=== PATIENT | female | born 1960 | race Caucasian/White ===

== ENCOUNTER 2018-05-12 12:32 | Outpatient (REF) | payer MEDICAID, SELFPAY ==
[2018-05-12 19:27] LABS: HCT 45.6 % (36.0-46.0); HGB 15.2 g/dL (12.0-15.5); Mean Corp. HGB Concentration 33.3 g/dL (32.0-36.0); Mean Corpuscular Volume 98.9 fL (80-95); Mean Platelet Volume 10.7 fL (8.0-11.0); Platelet Count 213 x1000/uL (130-400); RBC 4.61 m/cumm (4.00-5.20); RBC Distribution Width 13.1 % (11.7-14.6); White Blood Cell Count 7.35 k/cumm (4.4-10.8)
[2018-05-12 19:53] LABS: ALT 27 U/L (12-78); AST 25 U/L (15-37); Albumin 4.1 g/dL (3.4-5.0); Alkaline Phosphatase 64 U/L (46-116); BUN 11 mg/dL (7-18); Bilirubin, Total 0.2 mg/dL (0.2-1.0); CREATININE 0.73 mg/dL (0.55-1.02); Calcium 8.5 mg/dL (8.5-10.1); Chloride 106 mmol/L (98-107); Glucose 87 mg/dL (70-100); Lipase 162 U/L (73-393); Potassium 4.2 mmol/L (3.5-5.1); Sodium 142 mmol/L (136-145); TSH 1.26 uIU/mL (0.358-3.74); Total Protein 7.1 g/dL (6.4-8.2)
== END 2018-05-12 12:52 ==
LOC: NCHCN 12:32
PROVIDERS: PCP Internal Medicine; Visit Provider Internal Medicine
DX: L28.0 Lichen simplex chronicus (principal); R63.4 Abnormal weight loss; D05.11 Intraductal carcinoma in situ of right breast; M54.9 Dorsalgia, unspecified; F43.10 Post-traumatic stress disorder, unspecified
CPT/HCPCS: 80053; 83690; 85027; 84443

== ENCOUNTER 2018-06-07 00:45 | Outpatient (CLI) | payer MEDICAID, SELFPAY ==
--- NOTE | 2018-06-07 14:00 | DI.US_ITS ---
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 dated September,. The patient has bilateral breast implants, which appear intact bilaterally. There is very little breast tissue. No cysts or masses are identified. No skin thickening is seen. IMPRESSION: Category 1, negative bilateral breast ultrasound. Yearly screening mammography is recommended. SA ASSESSMENT OF FINDINGS: Negative. Category 1. Patient will receive a letter notifying them of these results.
== END 2018-06-07 01:05 ==
PROVIDERS: PCP Internal Medicine; Visit Provider Internal Medicine
DX: D05.11 Intraductal carcinoma in situ of right breast (principal); Z98.82 Breast implant status
CPT/HCPCS: 76642

== ENCOUNTER 2019-06-08 00:56 | Outpatient (CLI) | payer MEDICAID, SELFPAY ==
--- NOTE | 2019-06-08 14:34 | DI.US_ITS ---
EXAM: US BREAST RT COMPLETE CLINICAL HISTORY: DUCTAL CARCINOMA IN SITU, ABNORMAL CELLS TECHNIQUE: Ultrasound performed using standard protocol. COMPARISON: US breast LT complete from 06/07/2018 FINDINGS: Right breast ultrasound and left breast ultrasound are interpreted in conjunction. These examination s were obtained as the patient refuses mammography. Ultrasound evaluation of both breasts shows no mass or cyst. IMPRESSION: Negative bilateral breast ultrasound. Please note that ultrasound is much less sensitive than mammog jaida in detecting early breast carcinoma and mammography is recommended in this patient.
== END 2019-06-08 01:16 ==
PROVIDERS: PCP Internal Medicine; Visit Provider Internal Medicine
DX: D05.10 Intraductal carcinoma in situ of unspecified breast (principal)
CPT/HCPCS: 76642

== ENCOUNTER 2019-07-27 16:06 | Outpatient (REF) | payer MEDICAID, SELFPAY ==
[2019-07-27 19:06] LABS: PROTEIN 181.4 mg/dL
[2019-07-27 19:10] LABS: COMMENT (LAB VIEW ONLY) 247.44 mg/dL; Prot/Crea Ur Ratio 0.73
[2019-07-27 19:16] LABS: HCT 43.5 % (36.0-46.0); HGB 15.1 g/dL (12.0-15.5); Mean Corp. HGB Concentration 34.7 g/dL (32.0-36.0); Mean Corpuscular Hemoglobin 33.8 pg (27.0-33.0); Mean Corpuscular Volume 97.3 fL (80-95); Mean Platelet Volume 10.1 fL (8.0-11.0); Platelet Count 219 x1000/uL (130-400); RBC 4.47 m/cumm (4.00-5.20); White Blood Cell Count 6.91 k/cumm (4.4-10.8)
[2019-07-27 19:27] LABS: ALT 36 U/L (14-59); AST 29 U/L (15-37); Albumin 4.4 g/dL (3.4-5.0); Alkaline Phosphatase 52 U/L (46-116); Anion Gap 11.2 mmol/L (3-11); BUN 15 mg/dL (7-18); Bilirubin, Total 0.4 mg/dL (0.2-1.0); CO2 28.8 mmol/L (21.0-32.0); CREATININE 0.63 mg/dL (0.55-1.02); Chloride 104 mmol/L (98-107); Glucose 83 mg/dL (74-106); Potassium 4.4 mmol/L (3.5-5.1); Sodium 144 mmol/L (136-145); TSH 0.92 uIU/mL (0.36-3.74); Total Protein 7.4 g/dL (6.4-8.2)
== END 2019-07-27 16:26 ==
LOC: NCHCN 16:06
PROVIDERS: PCP Internal Medicine; Visit Provider Internal Medicine
DX: R10.32 Left lower quadrant pain (principal); F17.210 Nicotine dependence, cigarettes, uncomplicated; R63.4 Abnormal weight loss; M79.7 Fibromyalgia
CPT/HCPCS: 80053; 85027; 82565; 84156; 84443

== ENCOUNTER 2020-08-28 16:52 | Outpatient (REF) | payer MEDICAID, SELFPAY ==
[2020-08-30 15:34] LABS: COVID-19 RT-PCR Result NEGATIVE (Negative)
== END 2020-08-28 17:12 ==
LOC: NCHCN 16:52
PROVIDERS: PCP Internal Medicine; Visit Provider Internal Medicine
DX: Z20.822 Contact with and (suspected) exposure to COVID-19 (principal)
CPT/HCPCS: U0003

== ENCOUNTER 2020-11-14 14:59 | Outpatient (REF) | payer MEDICAID, SELFPAY ==
[2020-11-14 18:43] LABS: HCT 42.3 % (36.0-46.0); HGB 14.7 g/dL (11.2-15.7); MCHC 34.8 % (32.0-36.0); MCV 97.9 fL (80-95); MPV 9.8 fL (8.0-11.0); Platelet Count 201 10^3/uL (130-400); RBC 4.32 10^6/uL (3.93-5.22); RDW 12.6 % (11.7-14.6); RDW-SD 45.3 fL; WBC 8.12 10^3/uL (4.4-10.8)
[2020-11-14 19:00] LABS: ALT 26 U/L (14-59); AST 21 U/L (15-37); Alkaline Phosphatase 51 U/L (46-116); Anion Gap 7.8 mmol/L (3-11); BUN 15 mg/dL (7-18); Bilirubin, Total 0.6 mg/dL (0.2-1.0); CO2 28.2 mmol/L (21.0-32.0); CREATININE 0.8 mg/dL (0.55-1.02); Chloride 103 mmol/L (98-107); Glucose 100 mg/dL (74-106); Potassium 4.4 mmol/L (3.5-5.1); Sodium 139 mmol/L (136-145); Total Protein 6.9 g/dL (6.4-8.2)
== END 2020-11-14 15:00 | disposition home or self-care (01) ==
LOC: NCHCN 14:59
PROVIDERS: PCP Internal Medicine; Visit Provider Internal Medicine
DX: R63.4 Abnormal weight loss (principal); G43.909 Migraine, unspecified, not intractable, without status migrainosus; F43.10 Post-traumatic stress disorder, unspecified
CPT/HCPCS: 80053; 85027

== ENCOUNTER 2021-04-22 23:35 | Emergency (ER) | payer MEDICAID, SELFPAY ==
[2021-04-22 23:40] VITALS: BP 124/76; PULSE 67; RESP 18; TEMP 36.7; O2SAT 100
--- NOTE | 2021-04-22 23:45 | DI.CT_ITS ---
Exam(s) CT ABDOMEN PELVIS W EXAM: CT ABDOMEN PELVIS W CLINICAL HISTORY: left flank plain, vomiting. TECHNIQUE: Imaging Protocol: Axial computed tomography images with coronal and sagittal reformatted images were created and reviewed CONTRAST MATERIAL: Intravenous: Omnipaque 100cc Oral: None COMPARISON: CT CHEST FOR PULMONARY EMBOLUS from 05/20/2017 FINDINGS: VISUALIZED LUNG BASES: No nodules nor pleural effusions evident. ABDOMEN: There is no ascites. LIVER: There are no focal hepatic lesions evident . GALLBLADDER/BILIARY: No obvious gallbladder pathology. CBD is not dilated. PANCREAS: No evidence of pancreatic mass nor dilatation of the pancreatic duct. SPLEEN: Spleen is not enlarged. No obvious intrasplenic lesions. Splenic and portal veins are paten t. However there do appear to be some collateral vessels in the region of the left adrenal gland, po ssibly significant. ADRENALS: There are no significant adrenal masses. KIDNEYS:Parapelvic cysts in left kidney are noted. No solid renal masses. No calculi nor hydronephr osis.. ABDOMINAL AORTA: Abdominal aorta is not enlarged. LYMPH NODES:There is no retroperitineal nor paraaortic adenopathy. ABDOMINAL WALL: No evidence of significant anterior abdominal wall hernia. GI: There is no evidence of bowel obstruction, free air, nor abscess. PELVIS: GI: No evidence of appendicitis.No evidence of sigmoid diverticulitis. LYMPH NODES: There is no intrapelvic nor inguinal adenopathy. REPRODUCTIVE: Uterus is surgically absent. There are no abnormal adnexal masses. URINARY BLADDER: Not distended. No obvious abnormality. OSSEOUS: No significant osseous lesions. IMPRESSION: 1. No acute findings. 2. However, there are some collateral vessels near the left adrenal gland. Possibly element of yu l hypertension. Spleen size is upper normal. The liver does not appear cirrhotic. 3. There is no ascites. This study 1st read by [facility] RADIATION DOSE DELIVERED: 498.25mGy.cm Total DLP DATA REPOSITORY: All CT scans at this facility are submitted to the National Radiology Data Registry (NRDR) Dose Index Registry (DIR) with the [employer] (ACR). RADIATION OPTIMIZATION: All CT scans at this facility use at least one of these dose optimization te chniques: automated exposure control; mA and/or kV adjustment per patient size (includes targeted exa ms where dose is matched to clinical indication); or iterative reconstruction.
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
[2021-04-23] VITALS (21 sets, daily range): BP systolic 90–122; BP diastolic 49–79; PULSE 72–88; O2SAT 90–99
[2021-04-23 00:03] LABS: Abs Immature Grans 0.03 10^3/uL (0.0-0.06); Absolute Basophil Count 0.07 10^3/uL (0.0-0.2); Absolute Eosinophil Count 0.47 10^3/uL (0.0-0.7); Absolute Monocyte Count 0.94 10^3/uL (0.1-0.8); Absolute Neutrophil Count 6.28 10^3/uL (1.2-6.7); Basophils % 0.7; Eosinophils % 4.6; HCT 42.5 % (36.0-46.0); HGB 14.8 g/dL (11.2-15.7); Immature Grans % 0.3; Lactate 0.7 mmol/L (0.6-1.4); Lymphocytes % 23.6; MCH 34.1 pg (27.0-33.0); MCHC 34.8 % (32.0-36.0); MCV 97.9 fL (80-95); MPV 9.4 fL (8.0-11.0); Monocytes % 9.2; Neutrophils % 61.6; Nucleated RBC 0 %; Platelet Count 185 10^3/uL (130-400); RBC 4.34 10^6/uL (3.93-5.22); RDW 12.5 % (11.7-14.6); WBC 10.19 10^3/uL (4.4-10.8)
[2021-04-23 00:06] LABS: Bilirubin Negative (Negative); Blood Small (Negative); Clarity Clear (Clear); Glucose Negative (Negative); Ketones Trace mg/dL (Negative); Leukocyte Esterase Negative (Negative); Nitrite Negative (Negative); Specific Gravity 1.025 (1.005-1.025); Urobilinogen 0.2 EU/dL (Up TO 0.2)
[2021-04-23 00:12] LABS: Bacteria Few HPF (Negative); C & S Indicated? No; Casts Negative LPF (Negative); Crystals Negative HPF (Negative); Epithelial Cells Rare HPF (Negative); Mucus Negative (Negative); WBC Negative HPF (0-5)
[2021-04-23 00:18] LABS: ALT 28 U/L (14-59); AST 23 U/L (15-37); Albumin 4.3 g/dL (3.4-5.0); Alkaline Phosphatase 51 U/L (46-116); Anion Gap 8.6 mmol/L (3-11); BUN 21 mg/dL (7-18); Bilirubin, Total 0.4 mg/dL (0.2-1.0); CO2 28.4 mmol/L (21.0-32.0); CREATININE 0.9 mg/dL (0.55-1.02); Chloride 103 mmol/L (98-107); Glucose 102 mg/dL (74-106); Lipase 142 U/L (73-393); Potassium 3.9 mmol/L (3.5-5.1); Sodium 140 mmol/L (136-145); Total Protein 7.1 g/dL (6.4-8.2)
[2021-04-23] MEDS: Lactated Ringers 1,000 ML 1000 ML IV (00:20)
[2021-04-23] MEDS: Omnipaque 350 MG/ML 100 ML BTL IJ (00:25)
[2021-04-23] MEDS: Ondansetron 4 MG/2 ML VIAL IVP (00:25)
[2021-04-23] MEDS: Normal Saline Flush 10 ML SYR IVP (00:26)
[2021-04-23] MEDS: MORPHine 4 MG/ML SYR IVP (00:29)
--- NOTE | 2021-04-23 01:41 | DI.VRAD_ITS ---
PROCEDURE INFORMATION: Exam: CT Abdomen And Pelvis With Contrast Exam date and time: 04/22/2021 11:50 PM Age: 61 years old Clinical indication: Nausea and vomiting; Other: L flank pain; Prior surgery; Surgery date: 6+ months; Surgery type: Hysterectomy, hernia repair TECHNIQUE: Imaging protocol: Computed tomography of the abdomen and pelvis with contrast. Radiation optimization: All CT scans at this facility use at least one of these dose optimization techniques: automated exposure control; mA and/or kV adjustment per patient size (includes targeted exams where dose is matched to clinical indication); or iterative reconstruction. Contrast material: OMNIPAQUE 350; Contrast volume: 64 ml; Contrast route: INTRAVENOUS (IV); COMPARISON: CT CHEST FOR PULMONARY EMBOLUS 05/20/2017 10:28 PM FINDINGS: Limitations: Paucity of intra-abdominal fat. Lungs: Tiny pulmonary nodules at the lung bases with the largest measuring approximately 2 mm, nonspecific. Liver: Normal appearing liver. Gallbladder and bile ducts: Normal appearing gallbladder. No calcified gallstones. No biliary dilatation. Pancreas: Normal appearing pancreas. Spleen: Normal appearing spleen. Adrenal glands: Adrenal glands partially obscured but grossly unremarkable, as seen. Kidneys and ureters: Unusual asymmetrically prominent renal sinus fat on the left, uncertain etiology and clinical significance. Small indeterminate hypoattenuating left renal lesion, incompletely characterized but statistically most likely a small renal cyst. Normal-appearing right kidney. No hydronephrosis. Ureters obscured. No suspicious calcifications along the expected ureteral courses. Stomach and bowel: No oral contrast. Stomach partially distended with ingested material. No small bowel dilatation to suggest obstruction. Normal-appearing colon. No evidence of diverticulitis or colitis. Appendix: Appendix not identified, obscured if present. Correlation with surgical history recommended. If there is clinical concern for acute appendicitis and the patient still has an appendix, additional evaluation would be recommended. Intraperitoneal space: No gross ascites or free air. Vasculature: Normal caliber abdominal aorta. Varices in the gastrohepatic ligament. Splenic varices and periadrenal varices with an appearance suspicious for portal venous shunting to the left renal vein. Lymph nodes: No pathologically enlarged mesenteric, retroperitoneal, or pelvic sidewall lymph nodes. Urinary bladder: Urinary bladder collapsed and not well evaluated but grossly unremarkable, as seen. Reproductive: Prior hysterectomy. Suggestion of a left ovary with an adjacent adnexal clip on image 60 of series 5. Right ovary suggested along the right pelvic sidewall on image 43 of series 7 with an adjacent adnexal clip on image 40 of series 7. Bones/joints: No acute fracture seen among the bones of the abdomen or pelvis. Prominent discogenic degeneration at L2-L3. Soft tissues: No significant ventral or inguinal hernia. IMPRESSION: 1. Unusual asymmetric prominence of the renal sinus fat on the left, uncertain etiology and clinical significance but also apparently present on the comparison CTA chest or 2017 although the kidneys are only partially visualized on that exam. 2. No hydronephrosis. Ureters obscured. No suspicious calcifications along the expected ureteral courses. 3. No acute bowel pathology demonstrated. 4. Varices in the gastrohepatic ligament. Splenic varices and periadrenal varices with an appearance suspicious for portal venous shunting to the left renal vein. Elevated portal venous pressure is suggested. Dictated and Authenticated by: Barney Madsen MD. Ordering:MARY Dixon MD
[2021-04-23] MEDS: Ketorolac 15 MG/ML VIAL IVP (02:03)
== END 2021-04-23 02:25 | disposition home or self-care (01) ==
LOC: ER 04-23 02:22
PROVIDERS: Emergency Provider Student in an Organized Health Care Education/Training Program; PCP Internal Medicine
DX: R10.9 Unspecified abdominal pain (principal)
CPT/HCPCS: 36415; 80053; 83690; 96361; 96374; 96375; 99285; 74177; 81003; 81015; 83605; 85025; 99284; J1885; J2270; J2405; J3490

== ENCOUNTER 2022-09-02 01:45 | Outpatient (CLI) | payer MEDICAID, SELFPAY ==
--- NOTE | 2022-09-02 13:44 | DI.RAD_ITS ---
Exam(s) XR HIP RT COMPLETE AP PELVIS EXAM: XR HIP RT COMPLETE AP PELVIS CLINICAL HISTORY: CONTUSION OF RT HIP, SEQUELA, S70.01XS. TECHNIQUE: 2D digital imaging was performed. COMPARISON: No exams were available for comparison FINDINGS: Two views: No evidence of pelvic nor hip fracture. No obvious hip joint space narrowing on either side. No pro minent osteophytes. Sacroiliac joints unremarkable. Bone density normal. No osseous lesions eviden t. IMPRESSION: As above. DATA REPOSITORY: RADIATION DOSE DELIVERED:
== END 2022-09-02 02:05 ==
LOC: DI 01:45
PROVIDERS: PCP Internal Medicine; Visit Provider Internal Medicine
DX: M25.551 Pain in right hip (principal); S70.01XD Contusion of right hip, subsequent encounter
CPT/HCPCS: 73502

== ENCOUNTER 2024-04-12 22:42 | Outpatient (REF) | payer MEDICAID, SELFPAY ==
[2024-04-12 20:03] LABS: HCT 43.2 % (36.0-46.0); HGB 14.8 g/dL (11.2-15.7); MCH 33.6 pg (27.0-33.0); MCHC 34.3 % (32.0-36.0); MCV 98 fL (80-95); MPV 10.1 fL (8.0-11.0); Platelet Count 173 10^3/uL (130-400); RDW-SD 47.1 fL; WBC 6.92 10^3/uL (4.4-10.8)
[2024-04-12 20:22] LABS: ALT 36 U/L (14-59); AST 37 U/L (15-37); Alkaline Phosphatase 51 U/L (46-116); Anion Gap 3.6 mmol/L (3-11); BUN 12 mg/dL (7-18); Bilirubin, Total 0.38 mg/dL (0.2-1.0); CO2 30.4 mmol/L (21.0-32.0); CREATININE 0.8 mg/dL (0.55-1.02); Calcium 8.7 mg/dL (8.5-10.1); Calculated LDL 94 mg/dL (<100); Chloride 101 mmol/L (98-107); Cholesterol 187 mg/dL (<200); Estimated GFR 83.26 (mL/min/1.73m2); Glucose 188 mg/dL (74-106); HDL Cholesterol 76 mg/dL (40-60); Sodium 135 mmol/L (136-145); TSH 1.03 uIU/Ml (0.36-3.74); Total Protein 6.9 g/dL (6.4-8.2); Triglyceride 89 mg/dL (<150)
== END 2024-04-12 22:43 | disposition home or self-care (01) ==
LOC: NCHCN 22:42
PROVIDERS: PCP Internal Medicine; Visit Provider Internal Medicine
DX: R63.4 Abnormal weight loss (principal); R79.89 Other specified abnormal findings of blood chemistry
CPT/HCPCS: 80053; 80061; 85027; 84443

== ENCOUNTER 2024-07-26 19:55 | Outpatient (REF) | payer MEDICAID, SELFPAY ==
--- OUTSIDE RECORDS SUMMARY | 2024-07-26 19:57 | XMS_ITS | Encounter Summary ---
Author Organization [facility] Address [address] [place] [address] Care Team Providers Care Urban Anthropologist Name Role Phone Unknown, Provider Primary Care Provider Unava ilable Encounter Details Date Type Department Care Team (Late st Contact Info) Description 02/27/2020 Lab Requisition [facility] Pathology & Laboratory Medicine - [facility] [address], [place] [id number] Outr Resulting Lab, Provider Social History Tobacco Use Types Packs/Day Years Used Date Smoking Tobacco: Never Assessed Comments Unknown Sex and Gender Information Value Date Recorded Sex Assigned at Not on file Legal Sex Female 17:21 EDT Gender Identity Not on file Sexual Orientation Not on file documented as of this encounter Plan of Treatment Not on file documented as of this encounter Procedures Procedure Name Priority Date/Time Associated Diagnosis Comments DO NOT ORDER STANDALONE - BROAD COVID TEST Today 02/27/2020 14:09 EDT COVID-19 TESTING Routine 02/27/2020 14:0 9 EDT documented in this encounter Results * DO NOT ORDER STANDALONE - BROAD COVID TEST (02/27/2020 14:09 EDT) COVID-19 rt-PCR Result NEGATIVE Negative 02/29/2020 18:36 EDT [facility] Comment: 2019-novel Coronavirus (2019-nCoV) not detected by the qRT-PCR assay. Consider testing for other respiratory viruses or re-collecting for 2019-nCoV testing. Note: Optimum timing for peak viral levels during infections caused by 2019-nCoV have not been determined. Collection of multiple specimens from the same patient may be necessary to detect the virus. Limitations Positive results are indicative of active infection with SARS-CoV-2 but do not rule out bacterial infection or co-infection with other viruses. The agent detected may not be the definite cause of disease. In addition, detection of viral RNA may not indicate the presence of infectious virus or that SARS-CoV-2 is the causative agent for clinical symptoms. Negative results do not preclude SARS-CoV-2 infection and should not be used as the sole basis for patient management decisions. Negative results must be combined with clinical observations, patient history, and epidemiological information. False negative results may also occur if amplification inhibitors are present in the specimen or if inadequate numbers of organisms are present in the specimen. Optimum specimen types and timing for peak viral levels during infections caused by SARS-CoV-2 have not been fully determined. Collection of multiple specimens (types and time points) from the same patient may be necessary to detect the virus. The test was validated for use with upper respiratory specimens obtained via nasopharyngeal or oropharyngeal swabs in VTM, UTM, M4, M5, M6, saline, and MTM media. The performance of this test has not been established for other specimens. Specimens collected using other FDA recommended Specimen Collection Materials listed in the FDA COVID-19 [employer] communication (November 09, 2019) are processed with the caveat that they were not all validated for use with this test and the result must be interpreted in this context. Furthermore, a false negative results may occur if a specimen is improperly collected, transported or handled. If the virus mutates in the RT-PCR target region, SARS-CoV-2 may not be detected or may be detected less predictably. Inhibitors or other types of interference may produce a false negative result. An interference study evaluating the effect of common cold medications was not performed. This test is not FDA-cleared but its performance characteristics were established by our CLIA-certified, CAP-accredited, high complexity laboratory in accordance with CLIA regulations, [employer] (CAP) guidelines (Nov 02, 2019), and FDA guidance (Oct 14, 2019). This test is only for use under the Food and Drug Administration's Emergency Use Authorization. Swab ENTIRE NASOPHARYNX / Unknown 02/27/2020 14:09 EDT 02/27/2020 22:24 EDT us Provider Outr Resulting Lab MICROBIOLOGY - GENER AL ORDERABLES Final Result [facility] [place] * COVID-19 TESTING (02/27/2020 14:09 EDT) COVID-19 rt-PCR Result NEGATIVE Negative 02/29/2020 20:46 EDT [facility] Comment: 2019-novel Coronavirus (2019-nCoV) not detected by the qRT-PCR assay. Consider testing for other respiratory viruses or re-collecting for 2019-nCoV testing. Note: Optimum timing for peak viral levels during infections caused by 2019-nCoV have not been determined. Collection of multiple specimens from the same patient may be necessary to detect the virus. Limitations Positive results are indicative of active infection with SARS-CoV-2 but do not rule out bacterial infection or co-infection with other viruses. The agent detected may not be the definite cause of disease. In addition, detection of viral RNA may not indicate the presence of infectious virus or that SARS-CoV-2 is the causative agent for clinical symptoms. Negative results do not preclude SARS-CoV-2 infection and should not be used as the sole basis for patient management decisions. Negative results must be combined with clinical observations, patient history, and epidemiological information. False negative results may also occur if amplification inhibitors are present in the specimen or if inadequate numbers of organisms are present in the specimen. Optimum specimen types and timing for peak viral levels during infections caused by SARS-CoV-2 have not been fully determined. Collection of multiple specimens (types and time points) from the same patient may be necessary to detect the virus. The test was validated for use with upper respiratory specimens obtained via nasopharyngeal or oropharyngeal swabs in VTM, UTM, M4, M5, M6, saline, and MTM media. The performance of this test has not been established for other specimens. Specimens collected using other FDA recommended Specimen Collection Materials listed in the FDA COVID-19 [employer] communication (November 09, 2019) are processed with the caveat that they were not all validated for use with this test and the result must be interpreted in this context. Furthermore, a false negative results may occur if a specimen is improperly collected, transported or handled. If the virus mutates in the RT-PCR target region, SARS-CoV-2 may not be detected or may be detected less predictably. Inhibitors or other types of interference may produce a false negative result. An interference study evaluating the effect of common cold medications was not performed. This test is not FDA-cleared but its performance characteristics were established by our CLIA-certified, CAP-accredited, high complexity laboratory in accordance with CLIA regulations, [employer] (CAP) guidelines (Nov 02, 2019), and FDA guidance (Oct 14, 2019). This test is only for use under the Food and Drug Administration's Emergency Use Authorization. Performing Lab [facility] 02/29/2020 20:46 EDT [facility] Swab 02/27/2020 14:0 9 EDT 02/27/2020 22:24 EDT us Provider Outr Resulting Lab MICROBIOLOGY - GENER AL ORDERABLES Final Result [facility] [address] [place] [address] [facility] [place] documented in this encounter Visit Diagnoses Not on filedocumented in this encounter Additional Health Concerns Infection Onset Date Last Indicated Resolved Time R/O COVID-19 02/27/2020 02/27/2020 03/03/2020 22:1 7 EDT documented as of this encounter Care Teams Urban Anthropologist Relationship Specialty Start Date End Date Unknown, Provider, PCP - General 06/09/18 documented as of this encounter
--- OUTSIDE RECORDS SUMMARY | 2024-07-26 19:57 | XMS_ITS | Encounter Summary ---
Author Organization [facility] Address [address] [place] [address] Care Team Providers Care Civil Cad Designer Name Role Phone Unknown, Provider MD Primary Care Provider Unava ilable Encounter Details Date Type Department Care Team (Latest Contact Info) Description 06/09/2018 14:05 EDT - 06/09/2018 23:59 EDT Hospital Encounter [address] [address] Unknown, ProviderMD Discharge Disposition: Home or Self Care Social History Tobacco Use Types Packs/Day Years Used Date Smoking Tobacco: Never Assessed Comments Unknown Sex and Gender Information Value Date Recorded Sex Assigned at Not on file Legal Sex Female 17:21 EDT Gender Identity Not on file Sexual Orientation Not on file documented as of this encounter Discharge Disposition Disposition Code Departure Means Destination Home or Self Snf documented in this encounter Plan of Treatment Not on file documented as of this encounter Visit Diagnoses Not on filedocumented in this encounter Care Teams Civil Cad Designer Relationship Specialty Start Date End Date Unknown, Provider, PCP - General 06/09/18 documented as of this encounter
--- OUTSIDE RECORDS SUMMARY | 2024-07-26 19:57 | XMS_ITS | Encounter Summary ---
Author Organization [facility] Address [address] [place] [address] Care Team Providers Care Gold Assayer Name Role Phone Unknown, Provider MD Primary Care Provider Unava ilable Encounter Details Date Type Department Care Team (Late st Contact Info) Description 03/29/2023 Lab Requisition [facility] Pathology & Laboratory Medicine - [facility] [address] [place] [address] Outr Resulting Lab, Provider Social History Tobacco Use Types Packs/Day Years Used Date Smoking Tobacco: Never Assessed Interpersonal Safety Answer Date Record ed Physically Hurt Never 03/18/2020 Verbally Threaten Not on file 03/18/2020 Comments Unknown Sex and Gender Information Value Date Recorded Sex Assigned at Not on file Legal Sex Female 17:21 EDT Gender Identity Not on file Sexual Orientation Not on file documented as of this encounter Plan of Treatment Not on file documented as of this encounter Procedures Procedure Name Priority Date/Time Associated Diagnosis Comments AFB CULTURE/SMEAR, OTHER Today 03/29/2023 15:48 EDT documented in this encounter Results * AFB CULTURE/SMEAR, OTHER (03/29/2023 15:48 EDT) Organism ID No acid-fast bacilli isolated VITEK SUSCEPTIBILITY 05/25/2023 8:36 EDT [facility] AFB Smear No Acid Fast Bacilli Seen 05/25/2023 8:36 EDT [facility] Sputum SPUTUM / Unknown 03/29/2023 15:48 EDT 03/29/2023 22:07 EDT us Provider Outr Resulting Lab MICROBIOLOGY - GENER AL ORDERABLES Final Result [facility] [address] [place] [address] documented in this encounter Visit Diagnoses Not on filedocumented in this encounter Care Teams Gold Assayer Relationship Specialty Start Date End Date Unknown, Provider, PCP - General 06/09/18 documented as of this encounter
--- OUTSIDE RECORDS SUMMARY | 2024-07-26 19:57 | XMS_ITS | Encounter Summary ---
Author Organization [facility] Address [address] [place] [address] Care Team Providers Care Sales Support Associate Name Role Phone Unknown, Provider Primary Care Provider Unava ilable Encounter Details Date Type Department Care Team (Late st Contact Info) Description 06/09/2018 Results Only [facility]- [facility] [phone] Danial Howard MD [address] [place] [phone] Social History Tobacco Use Types Packs/Day Years [...] Procedure Name Priority Date/Time Associated Diagnosis Comments SURGICAL PATHOLOGY Routine 06/09/2018 9:30 EDT FLOW CYTOMETRY Routine 06/09/2018 0:00 EDT documented in this encounter Results * SURGICAL PATHOLOGY (06/09/2018 9:30 EDT) Pathology Report: SURGICAL PATHOLOGY REPORT Reports generated via electronic interface contain original data; however they are lacking the format of the original report. Caution should be taken when reading/interpretin g unformatted reports. Name: ? SLADE MCFADDEN ? Accession #: ? [id number] ? : ? 1960 (Age: 58) ??F ? Collect Date: ? 06/09/2018 ? Location: ? [facility] ? Receive Date: ? 06/09/2018 ? Provider: DANIAL HOWARD MD Copy to: ? Final Pathologic Diagnosis: A. GASTROESOPHAGEAL JUNCTION, BIOPSY: - ??Squamous and columnar mucosa with features of reflux esophagitis. - ??Negative for intestinal metaplasia or dysplasia. Document reviewed and electronically signed by: CHESTER BEEBE MD Report ??Date: 06/13/2018 14:49 By the signature above, the attending physician certifies that he/she has personally conducted a gross and/or microscopic examination of the described specimens and rendered or confirmed the above diagnosis. Specimen(s) Received: GE junction bx Clinical History: Unexplained weight loss; normal endoscopy Gross Description: ? Received in formalin labelled with proper patient identification (initials S, R) and GE junction bx is a single mtz-white tissue fragment (0.3 x 0.2 x 0.1 cm). Submitted intact in 1. Minicko Miller 06/10/2018 9:38 AM End of Report [facility] 06/09/2018 9:30 EDT 06/09/2018 9:30 EDT us Danial Howard MD PATHOLOGY ORDERABLES F inal Result [facility] [address] [place] [address] * FLOW CYTOMETRY (06/09/2018 0:00 EDT) Pathology Report: FLOW CYTOMETRY REPORT Reports generated via electronic interface contain original data; however they are lacking the format of the original report. Caution should be taken when reading/interpretin g unformatted reports. Name: ? SLADE MCFADDEN ? Accession #: ? [id number] : ? 1960 (Age: 58) ??F ?Collect Date: ? 06/09/2018 00:00 Location: ? [facility] ? Receive Date: ? 06/10/2018 08:15 Provider: ?DANIAL HOWARD MD Copy to: ? FINAL IMMUNOPHENOTYPIC INTERPRETATION: ? Lymph node, right inguinal, flow cytometric analysis: - ?Specimen insufficiently cellular for full evaluation. See comment. ? COMMENT: The specimen is insufficiently cellular for full evaluation, but there is no evidence of immunophenotypic abnormalities in the limited study performed. The lymphocytes are predominantly T-cells. Selective cell loss may occur and may reduce sensitivity for the detection of large cell lymphoma. Flow cytometry is not sensitive for the detection of Hodgkin lymphoma. Correlation of these findings with morphologic and clinical data is essential. ? Document reviewed and electronically signed by: ? VIVIANA JI MD Report Date: ??06/10/2018 13:54 By the signature above, the attending physician certifies that he/she has personally conducted an evaluation of the described specimen and rendered or confirmed the above diagnosis. CLINICAL HISTORY: The patient is a 58-year-old female with firm inguinal adenopathy. DESCRIPTION: The specimen consists of lymph node tissue from which a single cell suspension is prepared. Gating is performed using CD45 fluorescence and side scatter. Cellular viability (assessed by propidium iodide exclusion) is excellent (96%) among the CD45 positive events. The specimen is hypocellular, with only 212 gated lymphocyte events available for evaluation. For this reason, a limited panel of antibodies is used. Expression of the following antigens is tested: CD3, CD4, CD5, CD7, CD8, CD10, CD19, CD20, CD23, CD45, FMC-7, kappa, lambda. The lymphocytes appear to be mostly T-cells. B-cells are too few in number to permit definitive assessment with respect to light chain expression. ? This test was developed and its performance characteristics determined by the Department of Pathology and Laboratory Medicine, [facility], [place], [place] ??It has not been cleared or approved by the U.S. Food and Drug Administration. ??FDA does not require this test to go through premarket FDA review. ??This test is used for clinical purposes. ??It should not be regarded as investigational or for research. ??This laboratory is certified under the Clinical Laboratory Improvement Amendments (CLIA) as qualified to perform high complexity clinical laboratory testing. End of Report [facility] 06/09/2018 06/10/2018 8:1 5 EDT us Danial Howard MD PATHOLOGY ORDERABLES F inal Result [facility] [address] [place] [address] documented in this encounter Visit Diagnoses Not on filedocumented in this encounter Care Teams Sales Support Associate Relationship Specialty Start Date End Date Unknown, Provider, PCP - General 06/09/18 documented as of this encounter
--- OUTSIDE RECORDS SUMMARY | 2024-07-26 19:57 | XMS_ITS | Referral Summary ---
Author Organization [facility] Address [address] [place] [address] Care Team Providers Care Director Of Sustainability Programs Name Role Phone Unknown, Provider MD Primary Care Provider Unava ilable Social History Tobacco Use Types Packs/Day Years Used Date Smoking Tobacco: Never Assessed Interpersonal Safety Answer Date Record ed Physically Hurt Never 03/18/2020 Verbally Threaten Not on file 03/18/2020 Comments Unknown Sex and Gender Information Value Date Recorded Sex Assigned at Not on file Legal Sex Female 17:21 EDT Gender Identity Not on file Sexual Orientation Not on file Plan of Treatment Not on file Care Teams Director Of Sustainability Programs Relationship Specialty Start Date End Date Unknown, Provider, PCP - General 06/09/18
--- OUTSIDE RECORDS SUMMARY | 2024-07-26 19:57 | XMS_ITS | Encounter Summary ---
Author Organization [facility] Address [address] [place] [address] Care Team Providers Care Senior Benefits Specialist Name Role Phone Unknown, Provider MD Primary Care Provider Unava ilable Encounter Details Date Type Department Care Team (Late st Contact Info) Description 08/29/2020 Lab Requisition [facility] Pathology & Laboratory Medicine - [facility] [address] [place], [place] [phone] Outr Resulting Lab, Provider Social History Tobacco [...] ORDER STANDALONE - BROAD COVID TEST Today 08/28/2020 16:00 EST COVID-19 TESTING Routine 08/28/2020 16:0 0 EST documented in this encounter Results * DO NOT ORDER STANDALONE - BROAD COVID TEST (08/28/2020 16:00 EST) COVID-19 rt-PCR Result NEGATIVE Negative 08/30/2020 13:45 EST [facility] Comment: 2019-novel Coronavirus (2019-nCoV) not [...] in accordance with CLIA regulations, [employer] (CAP) guidelines (Nov 02, 2019), and FDA guidance (Oct 14, 2019). This test is only for use under the Food and Drug Administration's Emergency Use Authorization. Swab ENTIRE NASOPHARYNX / Unknown 08/28/2020 16:00 EST 08/29/2020 16:04 EST us Provider Outr Resulting Lab MICROBIOLOGY - GENER AL ORDERABLES Final Result [facility] [place], [place] * COVID-19 TESTING (08/28/2020 16:00 EST) COVID-19 rt-PCR Result NEGATIVE Negative 08/30/2020 15:29 EST [facility] Comment: 2019-novel Coronavirus (2019-nCoV) not detected [...] in accordance with CLIA regulations, [employer] (CAP) guidelines (Nov 02, 2019), and FDA guidance (Oct 14, 2019). This test is only for use under the Food and Drug Administration's Emergency Use Authorization. Performing Lab [facility] [employer] 08/30/2020 15:29 EST [facility] Swab 08/28/2020 16:0 0 EST 08/29/2020 16:04 EST us Provider Outr Resulting Lab MICROBIOLOGY - GENER AL ORDERABLES Final Result [facility] [address] [place] [address] [facility] [place], [place] documented in this encounter Visit Diagnoses Not on filedocumented in this encounter Care Teams Senior Benefits Specialist Relationship Specialty Start Date End Date Unknown, Provider, PCP - General 06/09/18 documented as of this encounter
--- OUTSIDE RECORDS SUMMARY | 2024-07-26 19:57 | XMS_ITS | Clinical Summary ---
Author Organization [facility] Address [address] [place] [address] Care Team Providers Care Shearing Shed Worker Name Role Phone Unknown, Provider MD Primary [...] Orientation Not on file Plan of Treatment Health Maintenance Due Date Last Done Comments Hepatitis C Screen 1960 COVID-19 Vaccine (2023- season) 2024 RSV Immunization ( o r 60+ Years) (1 - 1-dose 75+ series) 2037 Care Teams Shearing Shed Worker Relationship Specialty Start Date End Date Unknown, Provider, PCP - General 06/09/18
[2024-07-26 22:02] LABS: HCT 44.2 % (36.0-46.0); HGB 15.4 g/dL (11.2-15.7); MCH 33.3 pg (27.0-33.0); MCHC 34.8 % (32.0-36.0); MCV 96 fL (80-95); MPV 9.8 fL (8.0-11.0); Platelet Count 244 10^3/uL (130-400); RBC 4.63 10^6/uL (3.93-5.22); RDW 12.9 % (11.7-14.6); RDW-SD 45.3 fL
[2024-07-26 22:33] LABS: ALT 27 U/L (14-59); AST 28 U/L (15-37); Albumin 4.2 g/dL (3.4-5.0); Alkaline Phosphatase 50 U/L (46-116); Anion Gap 6.4 mmol/L (3-11); BUN 13 mg/dL (7-18); CO2 28.6 mmol/L (21.0-32.0); CREATININE 0.7 mg/dL (0.55-1.02); Calcium 9.7 mg/dL (8.5-10.1); Chloride 103 mmol/L (98-107); Estimated GFR 97.72 (mL/min/1.73m2); Glucose 109 mg/dL (74-106); Sodium 138 mmol/L (136-145); Total Protein 7.3 g/dL (6.4-8.2)
== END 2024-07-26 19:56 | disposition home or self-care (01) ==
LOC: NCHCN 19:55
PROVIDERS: PCP Internal Medicine; Visit Provider Internal Medicine
DX: R10.9 Unspecified abdominal pain (principal)
CPT/HCPCS: 80053; 85027

== ENCOUNTER 2025-03-15 22:03 | Outpatient (REF) | payer MEDICAID, SELFPAY ==
[2025-03-15 19:26] LABS: ESR < 1 mm/hr (0-30)
[2025-03-15 20:06] LABS: Vitamin B12 289 pg/mL (193-986)
[2025-03-15 20:26] LABS: C-Reactive Protein < 0.50 mg/dL (<or=0.5); Creatine Kinase 66 U/L (26-192); LDH 257 U/L (81-234)
== END 2025-03-15 22:04 | disposition home or self-care (01) ==
LOC: NCHCN 22:03
PROVIDERS: PCP Internal Medicine; Visit Provider Internal Medicine
DX: M79.18 Myalgia, other site (principal)
CPT/HCPCS: 82550; 85652; 82607; 83615; 86140